=== PATIENT | female | born 2000 | race Caucasian/White ===

== ENCOUNTER 2020-02-05 22:45 | Emergency (ER) | payer MEDICAID, SELFPAY ==
[2020-02-05 22:58] VITALS: BP 116/67; PULSE 72; RESP 16; TEMP 36.9; O2SAT 100; BMI 29.0
--- NOTE | 2020-02-05 23:09 | [facility].EDGENADL ---
ED Disposition Clinical Impression: Pyelonephritis Disposition: Home, Self-Care Condition on Discharge: Good Instructions: DI for Kidney Infection Additional Instructions: Ibuprofen for pain. Antibiotic as prescribed. Additional instructions for URINARY TRACT INFECTION: See your physician in 2-3 days for follow up and culture results. Return immediately if you have an uncontrollable fever greater than 102 degrees, severe back or abdominal pain, inability to urinate, or repetitive vomiting. Prescriptions: Cefdinir [Omnicef 300mg Capsule] 300 mg PO BID #20 cap Transmission Status: Received by [id number] Referrals: Provider,Referral, [Primary Care Provider] - - Critical Care Critical Care Time: No Attestation: On 02/05/20, the high probability of a clinically significant, sudden or life threatening deterioration of the following system(s) required my full and direct attention, intervention and personal management. The time I documented below is in addition to time spent performing reported procedures but includes the following listed in this critical care notation. Medical Decision Making - Medical Records Medical records reviewed: Yes: I reviewed the patient's medical records. - Adalberto Inquiry Pt receiving controlled substance: No Vital Signs: 02/05/20 22:58 02/06/20 01:09 Temperature 98.5 F 98.2 F Temperature Source Oral Oral Pulse Rate 64 Pulse Rate [Right] 72 Respiratory Rate 16 16 Blood Pressure 115/76 Blood Pressure [Right Arm] 116/67 Blood Pressure Mean [Right Arm] 83 Blood Pressure Source Automatic Cuff Blood Pressure Source [Right Arm] Automatic Cuff Blood Pressure Position Sitting Blood Pressure Position [Right Arm] Sitting 02 Sat by Pulse Oximetry 100 Oxygen Delivery Method Room Air Room Air - Lab Data Lab results reviewed: Yes: I reviewed the patient's lab results. Lab Results 02/05/20 23:00: Urine Color Yellow, Urine Appearance Clear, Urine pH 6.5, Ur Specific [place] 1.020, Urine Protein Negative, Urine Glucose (UA) Negative, Urine Ketones Negative, Urine Blood 1+, Urine Nitrate Negative, Urine Bilirubin Negative, Urine Urobilinogen 0.2, Ur Leukocyte Esterase 2+ A, Urine RBC 5-10, Urine WBC 20-50, Ur Squamous Epith Cells 10-20 02/05/20 23:00: Urine HCG, Qual Negative 02/05/20 23:15: WBC 9.2, RBC 4.37, Hgb 12.7, Hct 37.9, MCV 86.7, MCH 28.9, MCHC 33.4, RDW 13.3, Plt Count 207, MPV 7.5, Neut % (Auto) 64.8, Lymph % (Auto) 26.9, [place] % (Auto) 6.8, Eos % (Auto) 1.0, Baso % (Auto) 0.5, Neut # (Auto) 6.0, Lymph # (Auto) 2.5, [place] # (Auto) 0.6, Eos # (Auto) 0.1, Baso # (Auto) 0.1 02/05/20 23:15: Sodium 140, Potassium 3.8, Chloride 102, Carbon Dioxide 29, Anion Gap 12.8, BUN 12, Creatinine 0.80, Estimated Creat Clear 145, Estimated GFR 91, Est GFR ( Amer) 111, Glucose 90, Calcium 10.0, Total Bilirubin < 0.1 L, AST 32, ALT 23, Alkaline Phosphatase 70, Total Protein 8.1, Albumin 4.6, Globulin 3.5 H, Albumin/Globulin Ratio 1.3, Lipase 121 Result diagrams: 02/05/20 23:15 02/05/20 23:15 Orders (Tests/Meds): ED MEDICATIONS Discontinued Medications Generic Name Dose Route Start Last Admin Trade Name Freq PRN Reason Stop Dose Admin Ceftriaxone Sodium 1 gm/ 50 mls @ 100 mls/hr 02/06/20 00:47 02/06/20 00:58 Sodium Chloride IV 02/06/20 01:16 100 mls/hr ONCE ONE Administration Protocol Ketorolac Tromethamine 30 mg 02/06/20 00:59 02/06/20 01:03 Toradol 30mg/Ml Vial IV 02/06/20 01:00 30 mg ONCE ONE Administration ORDERS Category Date Time Status Urine Culture Stat Micro 02/05/20 23:00 Received - CT Data CT Scan: Abdomen, Pelvis Time Received: 00:59 ([facility] fax) ED CT Reviewed: Yes: I have viewed the radiologist's interpretation Findings Narrative: Mild right perinephric and periureteral fat stranding. Minimal right hydronephrosis. General Adult HPI - General Chief complaint: PAIN Stated complaint: Lower R corinne
[2020-02-05 23:11] LABS: Appearance,Urine CLEAR (Clear); Bilirubin,Urine Negative (Negative); Blood, Urine 1+ (Negative); Color,Urine YELLOW (Yellow); Glucose,Urine (UA) Negative (Negative); Ketones,Urine Negative (Negative); Leukocyte Esterase,Urine 2+ (Negative); Microscopic, Urine URINE MICROSCOPIC (MICROSCOPIC); Nitrate,Urine Negative (Negative); PH,Urine 6.5 (5.0-8.5); Protein,Urine Negative (Negative); Urobilinogen,Urine 0.2 EU/dl (0.2)
[2020-02-05 23:18] LABS: Urine Pregnancy, HCG Qual. Negative (Negative); WBC,Urine 20-50 #/hpf (0-3)
[2020-02-05 23:27] LABS: Basophils # 0.1 K/mm3 (0-0.2); Basophils % 0.5 % (0.1-2.0); Eosinophils # 0.1 K/mm3 (0.0-0.4); Hematocrit 37.9 % (37.0-47.0); Hemoglobin 12.7 g/dL (12.2-16.2); Lymphocytes # 2.5 K/mm3 (0.7-4.5); Lymphocytes % 26.9 % (10-50); Mean Corpuscular HGB Conc 33.4 g/dL (31.8-35.4); Mean Corpuscular Hemoglobin 28.9 pg (27.0-31.2); Mean Corpuscular Volume 86.7 fl (81-99); Mean Platelet Volume 7.5 fl (7.4-10.4); Monocytes # 0.6 K/mm3 (0.1-1.0); Monocytes % 6.8 % (1.7-9.3); Neutrophils % 64.8 % (37.0-80.0); Platelet Count 207 K/mm3 (142-424); Red Blood Count 4.37 M/mm3 (4.20-5.40); Red Cell Distribution Width 13.3 % (11.5-17.5); White Blood Count 9.2 K/mm3 (4.5-13.0)
[2020-02-05 23:31] LABS: Alanine Aminotransferase 23 U/L (12-78); Albumin Level 4.6 g/dl (3.5-5.0); Albumin/Globulin Ratio 1.3 (1.1-1.8); Alkaline Phosphatase 70 U/L (38-126); Anion Gap 12.8 mEq/L (5-15); Aspartate Amino Transferase 32 U/L (14-36); Blood Urea Nitrogen 12 mg/dl (7-17); Carbon Dioxide 29 mmol/L (22.0-30.0); Chloride 102 mmol/L (98-107); Creatinine Clearance Estimated 145 mL/min (50-200); Estimated Glomerular Filt Rate 91 ml/min (>60); GFR (African American) 111 ML/MIN (>60); Globulin 3.5 g/dL (1.3-3.2); Glucose 90 mg/dl (74-100); Lipase 121 U/L (23-300); Potassium 3.8 mmoL/L (3.5-5.1); Sodium 140 mmol/L (136-145); Total Protein,Serum 8.1 g/dl (6.3-8.2)
[2020-02-05 23:34] LABS: Bilirubin,Total < 0.1 mg/dl (0.2-1.3)
--- NOTE | 2020-02-06 00:01 | CT_ITS ---
PROCEDURE: CT ABDOMEN PELVIS WO CON CLINICAL INDICATION: right flank pain, r/o stone Right flank pain COMPARISON: No exams were available for comparison TECHNIQUE: Axial images obtained with sagittal and coronal reformats. All CT scans at the facility use one or more dose reduction, viz: automated exposure control, ma/kV adjustment per patient size (including targeted exams where dose is matched to indication, i.e. head), or iterative reconstruction technique. FINDINGS: LOWER THORAX: No acute finding ABDOMEN & PELVIS: The liver, spleen, adrenal glands, pancreas, and kidneys have an unremarkable appearance. No renal or ureteral calculi. The the gallbladder is contracted. No evidence of appendicitis or diverticulitis. No pelvic mass abnormal fluid collection or focal inflammatory change of the pelvis. The uterus is retroverted. There is mild prominence of the left ovary nonspecific. There is minimal amount of fluid in the pelvis which is nonspecific and may be physiologic. IMPRESSION: Retroverted uterus with mild prominence of left ovary nonspecific. May be better evaluated with pelvic ultrasound if clinically warranted. Minimal amount of fluid in the cul-de-sac. Otherwise negative Dictated by: Prabhakar Gordillo MD 02/06/2020 06:45 Electronically signed by Prabhakar Gordillo MD in [place] 02/06/2020 06:45
[2020-02-06 01:09] VITALS: BP 115/76; PULSE 64; RESP 16; TEMP 36.8; O2SAT 100
== END 2020-02-06 01:11 | disposition home or self-care (01) ==
PROVIDERS: Emergency Provider Emergency Medicine
DX: N12 Tubulo-interstitial nephritis, not specified as acute or chronic (principal)
CPT/HCPCS: 74176; 80053; 81001; 81025; 83690; 85025; 87086; 87088; 87186; 96365; 96375; 99283